=== PATIENT | female | born 1955 | race Caucasian/White ===

== ENCOUNTER 2017-05-10 13:24 | Emergency (ER) | payer MEDICARE, BC ==
[2017-05-10 16:40] LABS: Hematocrit 47 % (35-47); Hemoglobin 16.2 g/dl (12.0-16.0); Mean Corpuscular HGB Conc 35 g/dl (31-36); Mean Corpuscular Hemoglobin 30 pg (27-31); Mean Corpuscular Volume 86 fL (80-97); Mean Platelet Volume 7 um3 (7.4-10.4); Red Blood Count 5.42 10^6/ul (4.0-5.4); Red Cell Distribution Width 13 % (10.5-15); White Blood Count 5.2 10^3/ul (3.5-10.8)
[2017-05-10 17:02] LABS: Albumin 4.6 g/dL (3.2-5.2); BUN/Creatinine Ratio 7.6 (8-20); C Reactive Protein 6.61 mg/L (< 5.00); Calcium 9.8 mg/dL (8.6-10.3); EGFR African American 94.8 (>60); EGFR Non-African American 73.7 (>60); Globulin 3.1 g/dL (2-4); Potassium 3.8 mmol/L (3.5-5.0); Total Bilirubin 0.6 mg/dL (0.2-1.0); Total Protein 7.7 g/dL (6.4-8.9)
[2017-05-10] MEDS: NS 0.9% 1000 ML* 2,000 ML IV ONE (17:13)
[2017-05-10] MEDS ORDERED: Iohexol 300* (CONTRAST) 10 ML SDV IV ONE (17:20)
[2017-05-10 18:03] VITALS: BP 156/93
--- NOTE | 2017-05-10 18:04 | RAD ---
INDICATION: Left lower abdominal pain COMPARISON: March 16, 2011, May 19, 2010 TECHNIQUE: Axial source images were obtained from the hemidiaphragms to the symphysis pubis following administration of oral and intravenous contrast. And 9 mL Omnipaque 300 was utilized. Coronal and sagittal reconstructed images were acquired. Lung bases: There is a rounded 3 mm nodule in left lung base. This is likely an incidental chronic inflammatory focus. This was not clearly present previously but this could be related to technical factors. Suggest nonemergent 6 month follow-up noncontrast imaging the chest.. Liver: There is mild hepatic steatosis. The liver is normal in size. There are no masses. There is no ductal dilatation. Gallbladder: Cholecystectomy. Spleen: The spleen is normal in size. There are no masses. Pancreas: There is no focal pancreatic mass or ductal dilatation. Adrenal glands: There is no evidence of adrenal mass. Kidneys: The kidneys are normal in size and position. There are prompt nephrograms and there is prompt excretion bilaterally. There are no renal parenchymal masses. There is no evidence of nephrolithiasis. Adenopathy: There is no evidence of adenopathy by size criteria. Fluid collections: There are no free or localized fluid collections. Vessels:There are no significant atherosclerotic changes involving the aorta. There is no focal aneurysm. The iliac vessels are normal in caliber. The IVC appears normal. GI tract: The upper GI tract is unremarkable. There is diffuse stool throughout the colon which is mildly distended. There are moderate diverticula of the sigmoid colon. There is minor bowel wall thickening which appears chronic. Consider follow-up endoscopy. Pelvic organs: There is hysterectomy. There is no adnexal mass Bladder: There are no bladder masses. Abdominal and pelvic soft tissues: The extraperitoneal abdominal and pelvic soft tissues appear normal.. Osseous structures: There are no acute osseous findings. There is moderate levoscoliosis with multilevel degenerative disc disease of the lumbar spine. Other: None IMPRESSION: 1. Mild hepatic steatosis. 2. Cholecystectomy. Hysterectomy. 3. Large amount of stool throughout the colon with mild distention. Scattered diverticula. Mild chronic bowel wall thickening. Consider follow-up colonoscopy
[2017-05-10] MEDS ORDERED: Magnesium CITRATE* 300 ML BTL PO ONE (18:54)
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
== END 2017-05-10 19:09 | disposition home or self-care (01) ==
LOC: ED 13:24
DX: K21.9 Gastro-esophageal reflux disease without esophagitis (principal); R10.32 Left lower quadrant pain; K59.00 Constipation, unspecified; R11.2 Nausea with vomiting, unspecified; F17.210 Nicotine dependence, cigarettes, uncomplicated
CPT/HCPCS: 36415; 74177; 80053; 83605; 83690; 85025; 85610; 85730; 86140; 99282; A9270-GY; Q9967

== ENCOUNTER 2018-04-23 17:54 | Inpatient (IN) | payer MEDICARE, BC ==
[2018-04-23] MEDS ORDERED: Morphine VIAL* 10 MG/ML 1 ML VIAL IV ONE (18:12)
[2018-04-23] MEDS ORDERED: Ondansetron INJ* 2 MG/ML VIAL IV ONE (18:12)
[2018-04-23] MEDS ORDERED: NS 0.9% 1000 ML* 1,000 ML IV ONE ×2 (18:12→22:20)
[2018-04-23] MEDS ORDERED: Morphine INJ* 4 MG/ML 1 ML SYRINGE (NEW SYRINGE VERSION) ONE (18:15)
[2018-04-23 18:38] LABS: ABS Basophils 0.1 10^3/ul (0-0.2); ABS Eosinophils 0.1 10^3/ul (0-0.6); ABS Monocytes 0.3 10^3/ul (0-0.8); ABS Neutrophils 2.5 10^3/ul (1.5-7.7); ABS Nucleated RBC 0 10^3/ul; Eosinophil % 1.3 % (0-6); Hematocrit 37 % (35-47); Hemoglobin 12.8 g/dl (12.0-16.0); Lymphocyte % 39.5 % (25-47); Mean Corpuscular HGB Conc 35 g/dl (31-36); Mean Corpuscular Hemoglobin 30 pg (27-31); Mean Corpuscular Volume 86 fL (80-97); Mean Platelet Volume 6.9 um3 (7.4-10.4); Nucleated Red Blood Cells % 0.2; Platelet Count 386 10^3/ul (150-450); Red Blood Count 4.27 10^6/ul (4.00-5.40); Red Cell Distribution Width 14 % (10.5-15)
[2018-04-23 18:55] LABS: EGFR Non-African American 75.7 (>60)
[2018-04-23] MEDS ORDERED: Iohexol 300* (CONTRAST) 10 ML SDV IV ONE (19:11)
--- NOTE | 2018-04-23 20:20 | RAD ---
EXAM: CT Abdomen and Pelvis With Intravenous Contrast CLINICAL HISTORY: 63 years old, female; Pain; Abdominal pain; Localized; Left lower quadrant (llq); Additional info: Llq pain, HX of sbo TECHNIQUE: Axial computed tomography images of the abdomen and pelvis with intravenous contrast. All CT scans at this facility use at least one of these dose optimization techniques: automated exposure control; mA and/or kV adjustment per patient size (includes targeted exams where dose is matched to clinical indication); or iterative reconstruction. Coronal and sagittal reformatted images were created and reviewed. CONTRAST: 100 mL of [id number] administered intravenously. COMPARISON: A/P W CT ABD/PEL W 05/10/2017 5:47 PM FINDINGS: Lung bases: Normal. No mass. No consolidation. ABDOMEN: Liver: Normal. No masses. Portal and hepatic veins are patent. Gallbladder and bile ducts: Surgically absent gallbladder. Pancreas: Normal. No mass. No ductal dilation. Spleen: Normal. No splenomegaly. Adrenals: Normal. No mass. Kidneys and ureters: Indeterminate right renal lesion in the midpole measures 1.1 cm unchanged from prior study (series 4, image 18). The calculi pelvocaliectasis. Stomach and bowel: Incompletely distended grossly normal stomach. Normal caliber small bowel. No colonic masses or segmental wall thickening. PELVIS: Appendix: No dilation or periappendiceal inflammation. Bladder: Thin-walled bladder with no focal nodularity, perivesicular stranding, or calcifications. Reproductive: Uterus and ovaries are surgically absent. ABDOMEN and PELVIS: Intraperitoneal space: Normal. No pneumoperitoneum. No ascities. Bones/joints: The spine demonstrates mild degenerative changes at multiple levels. Levoscoliosis lower lumbar spine. Mild bilateral hip primary osteoarthritis. No fractures. No suspicious bone lesions. Soft tissues: Normal. No hernias. Vasculature: Normal caliber aorta with no evidence of dissection or rupture. Patent IVC. Lymph nodes: Normal. No enlarged lymph nodes. IMPRESSION: 1. No CT findings to correlate with patient's symptomatology. 2. Indeterminate right renal lesion likely a Bosniak type II cyst for which no followup is indicated. To contact [facility] with a general question: [facility] - [phone] For direct physician to physician contact: Physician Hotline - [phone] [facility] ([facility] Facility ID #[id number])
[2018-04-23] MEDS ORDERED: Pantoprazole IV* 40 MG IV ONE (21:12)
[2018-04-23] MEDS ORDERED: Metoclopramide IV* 5 MG/ML 2 ML VIAL IV ONE (22:18)
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
[2018-04-23 22:34] LABS: ABS Basophils 0 10^3/ul (0-0.2); ABS Eosinophils 0 10^3/ul (0-0.6); ABS Lymphocytes 1.2 10^3/ul (1.0-4.8); ABS Monocytes 0.4 10^3/ul (0-0.8); ABS Neutrophils 7.4 10^3/ul (1.5-7.7); ABS Nucleated RBC 0 10^3/ul; Eosinophil % 0.1 % (0-6); Hematocrit 32 % (35-47); Hemoglobin 11.2 g/dl (12.0-16.0); Lymphocyte % 13.1 % (25-47); Mean Corpuscular HGB Conc 35 g/dl (31-36); Mean Corpuscular Hemoglobin 30 pg (27-31); Mean Corpuscular Volume 87 fL (80-97); Mean Platelet Volume 6.7 um3 (7.4-10.4); Nucleated Red Blood Cells % 0; Platelet Count 273 10^3/ul (150-450); Red Blood Count 3.68 10^6/ul (4.00-5.40); Red Cell Distribution Width 14 % (10.5-15)
[2018-04-24] MEDS ORDERED: Metoclopramide IV* 5 MG/ML 2 ML VIAL IV PRN (00:06)
[2018-04-24] MEDS ORDERED: Ondansetron INJ* 2 MG/ML VIAL IV PRN (00:06)
[2018-04-24 00:24] LABS: Hematocrit 31 % (35-47); Hemoglobin 10.8 g/dl (12.0-16.0)
[2018-04-24] MEDS: NS 0.9% 1000 ML* 1,000 ML IV SCH ×2 (00:44→08:27)
[2018-04-24 08:14] LABS: Urine Appearance Clear; Urine Blood 1+ (Negative); Urine Color Yellow; Urine Ketones Negative (Negative); Urine Protein Negative (Negative); Urine Red Blood Cell Trace(0-2/hpf) (Absent); Urine Specific Gravity 1.026 (1.010-1.030); Urine Urobilinogen Negative (Negative); Urine White Blood Cell Trace(0-5/hpf) (Absent)
[2018-04-24] MEDS: Metoprolol Tartrate IV* 1 MG/ML 5 ML VIAL IV SCH ×2 (08:35→20:46)
[2018-04-24] MEDS ORDERED: Pantoprazole IV* 40 MG IV SCH (09:00)
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
[2018-04-24] MEDS: Pantoprazole IV* 40 MG IV SCH ×2 (10:17→20:45)
[2018-04-24 13:21] LABS: Hematocrit 25 % (35-47); Hemoglobin 8.8 g/dl (12.0-16.0); Mean Corpuscular HGB Conc 36 g/dl (31-36); Mean Corpuscular Hemoglobin 31 pg (27-31); Mean Corpuscular Volume 87 fL (80-97); Mean Platelet Volume 6.7 um3 (7.4-10.4); Platelet Count 257 10^3/ul (150-450); Red Blood Count 2.87 10^6/ul (4.00-5.40); Red Cell Distribution Width 14 % (10.5-15); White Blood Count 5.3 10^3/ul (3.5-10.8)
[2018-04-24] MEDS ORDERED: fentaNYL* 50 MCG/ML 2 ML VIAL (100 MCG VIAL) ONE (13:53)
[2018-04-24] MEDS ORDERED: Midazolam* 1 MG/ML 10 ML VIAL (10 MG) ONE (13:53)
--- NOTE | 2018-04-24 18:08 | CONS ---
GASTROENTEROLOGY CONSULT: DATE OF CONSULT: 04/24/18 REASON FOR CONSULT: Concern for upper GI bleed. HISTORY OF PRESENT ILLNESS: Ms. Miranda is a 63-year-old woman with a history of mood disorder, fibromyalgia, IBS with constipation, chronic lower back pain, who presented to the ER with abdominal pain and constipation x2 to 3 days. Ms. Miranda thought that this the pain and constipation was an exacerbation of her underlying IBS with constipation. In the ER, she was noted to have systolic blood pressure in the 80s. She was given 2 to 3 liters of fluid with improvement in her blood pressure. She reportedly then had several episodes of coffee-ground emesis. The patient does not recall seeing the emesis. No note made of bright red blood in the emesis on the admission H and P. Gastroccult was positive. The patient's labs were notable for hematocrit of 37 on arrival with an elevated BUN to 39. She was given IV PPI in addition to the IV fluids. Her labs have demonstrated a down trend in hematocrit over serial checks to 25. Her hemodynamics have remained stable. A CT abdomen and pelvis was negative for any acute GI pathology. GI consulted to consider endoscopy. On interview, Ms. Miranda says that her abdominal pain has much improved. She reports having 3 black stools today. She denies seeing any red blood in the stool, though she comments that she has not really been closely evaluating it. She has not had any further coffee-ground emesis or hematemesis since admission in the ER overnight. She thinks she might have been told that she had an ulcer in the past, although she is not clear any of the details. She denies any NSAIDs use. PAST MEDICAL HISTORY: Medical history includes mood disorder, chronic low back pain, fibromyalgia, hypertension, hyperlipidemia, IBS with constipation. FAMILY HISTORY: No GI or liver disease in family history. SOCIAL HISTORY: Smokes cigarettes. No alcohol use. No drug use. REVIEW OF SYSTEMS: Negative except as above. PHYSICAL EXAM: Vital Signs: Normal temperature, heart rate in the 80s, blood pressure 115/59, pulse ox sat of 99% on room air. General: Well-appearing, comfortable woman, in no acute distress. Making jokes and in a good spirit. HEENT: Mucous membranes are moist. No dried blood in mouth or lips. Cardiovascular: Regular rate and rhythm. No murmurs, rubs, or gallops. Pulmonary: Lungs are clear to auscultation. Abdomen: Soft, nontender, nondistended. Extremities: Warm, well perfused, no edema. Psych: Appears to be normal behavior and normal affect during our interview. DIAGNOSTIC STUDIES/LAB DATA: Labs reviewed and summarized in the HPI. Notable for an initial hematocrit of 37 and BUN elevated to 39. Her hematocrit has drifted down over the course of last 24 hours or so to hematocrit of 25. Stool occult was negative. Gastroccult was apparently positive. CT abdomen and pelvis was performed on 04/23/18. Report reviewed. She was noted to have an indeterminant right renal lesion, but no other acute findings were noted. IMPRESSION AND RECOMMENDATIONS: Ms. Miranda is a 63-year-old woman with a psychiatric history and irritable bowel syndrome with constipation, who presented with abdominal pain and constipation. In the ER, she was noted to be hypotensive, but fluid responsive. She then developed several episodes of coffee -ground emesis and has had several episodes of melena today. Her lab work is notable for an elevated BUN on admission and the hematocrit dropped from 37 to 25 over serial labs. Presentation is concerning for an upper GI bleed. The patient denies any NSAIDs use, although she mentions that she might have been told she had an ulcer in the past. - NPO - Continue IV PPI BID or gtt - Continue to monitor CBC - Plan for EGD this afternoon to evaluate further Procedure note to follow with final recommendations. Thank you very much for this consult. [id number]/[facility] #: [id number] SHIKHA
--- NOTE | 2018-04-24 20:11 | PRO ---
PROCEDURE NOTE: DATE OF PROCEDURE: 04/24/18 PROCEDURE: EGD with biopsy. INDICATION: Concern for upper GI bleed with coffee-ground emesis, melena, and hematocrit drop. MEDICATIONS GIVEN: 1. Fentanyl 100 mcg IV. 2. Midazolam 10 mg IV. DESCRIPTION OF PROCEDURE: Full disclosure of risks was reviewed with the patient as detailed on the consent form. The patient was placed in the left lateral decubitus position and monitored with continuous pulse oximetry, capnography, interval blood pressure monitoring, and direct observation. A bite- block was placed between her teeth. The adult gastroscope was slowly and carefully advanced into the esophagus, into the stomach, and into the distal duodenum. Findings are as below. FINDINGS: E: - Esophagus was a normal tubular structure without any esophagitis, erosions, or ulcers. - There was an incomplete mild patent Schatzki's ring in the distal esophagus. - There was no evidence of Yaneth-Guerra tear. G: - The scope was advanced into the stomach. The stomach was examined in the forward and retroflexed views. - A hiatal hernia was appreciated. There were no Prabhu's erosions or ulcers in the hiatal hernia. - There was yellow liquid fluid in the stomach. No fresh or old blood. - There were areas of linear erythema (antrum>body). Biopsies obtained. - A 1-cm clean-based prepyloric ulcer was noted in the 12 to 2 o'clock position. There was associated edema and narrowing at the pylorus. The adult gastroscope was unable to pass through the pylorus into the duodenum. The adult gastroscope was therefore withdrawn. The XP scope (much thinner diameter) was advanced down into the esophagus and into the stomach and easily passed through the pylorus into the duodenum. D: - The second portion of the duodenum appeared erythematous and edematous without any overt ulceration or erosion. - There was bilious fluid seen on the third portion of the duodenum. No fresh or old blood. The scope was then slowly withdrawn. Patient tolerated the procedure well and was returned to the floor. IMPRESSION: 1. Patent Schatzki's ring. 2. Hiatal hernia. 3. Linear erythema in the gastric antrum and body. 4. A 1-cm clean-based ulcer in the prepyloric antrum/pyloric channel resulting in some edema and narrowing at the pylorus. This is felt to be the source of bleeding. No active bleeding (or evidence of recent bleeding) at time of exam. 4. Adult gastroscope was unable to traverse the pylorus due to edema and narrowing of pylorus. XP gastroscope (much thinner diameter) was able to pass into duodenum and did not note any alternate or additional bleeding source in duodenum. RECOMMENDATIONS: - Await pathology from gastric biopsy - Continue to monitor CBC. - Recommend IV PPI b.i.d. while inpatient. Can switch to oral PPI b.i.d. when the patient is discharged. - Would recommend clear diet for now and slowly advance to a soft diet as hematocrit remains stable over the next 24 hours or so. Notify GI and de- escalate diet if the patient develops nausea, vomiting, or abdominal pain to suggest gastric outlet obstruction. - Please send H pylori stool antigen - Recommend a repeat in 6 weeks to reassess the gastric ulcer. Biopsy unable to be obtained today due to quite difficult location of the ulcer, but it will be important to make sure that the ulcer has healed or at least is significantly on follow-up endoscopy. - Avoid NSAIDs. [id number]/[facility] #: [id number] [facility]
[2018-04-24] MEDS: LORazepam INJ* 2 MG/ML 1 ML VIAL IV PUSH PRN (20:45)
[2018-04-24 22:02] LABS: Hematocrit 23 % (35-47); Hemoglobin 7.8 g/dl (12.0-16.0); Mean Corpuscular HGB Conc 34 g/dl (31-36); Mean Corpuscular Hemoglobin 30 pg (27-31); Mean Corpuscular Volume 86 fL (80-97); Mean Platelet Volume 6.3 um3 (7.4-10.4); Platelet Count 233 10^3/ul (150-450); Red Blood Count 2.65 10^6/ul (4.00-5.40); Red Cell Distribution Width 14 % (10.5-15); White Blood Count 5.4 10^3/ul (3.5-10.8)
[2018-04-24] MEDS: Acetaminophen TAB* 325 MG PO PRN (22:59)
[2018-04-25] MEDS: NS 0.9% 1000 ML* 1,000 ML IV SCH ×2 (00:21→08:25)
[2018-04-25] MEDS: Pantoprazole IV* 40 MG IV SCH ×2 (08:29→20:40)
[2018-04-25 09:13] LABS: ABS Basophils 0.1 10^3/ul (0-0.2); ABS Eosinophils 0.2 10^3/ul (0-0.6); ABS Monocytes 0.3 10^3/ul (0-0.8); ABS Neutrophils 2.1 10^3/ul (1.5-7.7); ABS Nucleated RBC 0 10^3/ul; Eosinophil % 3.4 % (0-6); Hematocrit 24 % (35-47); Hemoglobin 8.3 g/dl (12.0-16.0); Lymphocyte % 43.4 % (25-47); Mean Corpuscular HGB Conc 35 g/dl (31-36); Mean Corpuscular Hemoglobin 30 pg (27-31); Mean Corpuscular Volume 87 fL (80-97); Mean Platelet Volume 6.4 um3 (7.4-10.4); Nucleated Red Blood Cells % 0.1; Platelet Count 235 10^3/ul (150-450); Red Blood Count 2.74 10^6/ul (4.00-5.40); Red Cell Distribution Width 14 % (10.5-15); White Blood Count 4.6 10^3/ul (3.5-10.8)
[2018-04-25 09:32] LABS: EGFR Non-African American 97.2 (>60)
[2018-04-25] MEDS: Verapamil TAB* 120 MG PO SCH ×2 (10:46→20:43)
[2018-04-25] MEDS: Venlafaxine EXT RELEASE CAP* 75 MG PO SCH ×2 (10:46→20:43)
[2018-04-25] MEDS: LORazepam INJ* 2 MG/ML 1 ML VIAL IV PUSH PRN (12:48)
--- NOTE | 2018-04-25 14:56 | PN ---
Subjective Date of Service: 04/25/18 Interval History: Just had another black bowel movement. It was preceded by abdominal discomfort and nausea, all relieved after a bowel movement. Her partner is here visiting. No pain now, feels good just hot. Tolerating clears well, has good appetite and would be interested in advancing diet if allowed. 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, ptsd mood disorder with both depression and anxiety fibromyelgia hyperlipidemia htn ibs htn gonzalo pshx r anxillary lump removed 1979 benign s/p hysterectomy 1992, lbreast nodules resection with all benign path s/ p cholecystectomy 2008 s/p ablation of nerves in the lower back trauma to her left side of head ---> s/p tanya Objective Active Medications: Acetaminophen (Tylenol Tab*) 650 mg PO Q6H PRN PRN Reason: PAIN Last Admin: 04/24/18 22:59 Dose: 650 mg Lorazepam (Ativan Inj*) 0.5 mg IV PUSH Q4H PRN PRN Reason: ANXIETY Last Admin: 04/25/18 12:48 Dose: 0.5 mg Ondansetron HCl (Zofran Inj*) 4 mg IV Q6H PRN PRN Reason: NAUSEA Last Admin: 04/25/18 10:12 Dose: 4 mg Pantoprazole Sodium (Protonix Iv*) 40 mg IV BID [facility] Last Admin: 04/25/18 08:29 Dose: 40 mg Venlafaxine HCl (Effexor Xr Cap*) 75 mg PO BID [facility] Last Admin: 04/25/18 10:46 Dose: 75 mg Verapamil HCl (Calan Tab*) 120 mg PO BID [facility] Last Admin: 04/25/18 10:46 Dose: 120 mg Vital Signs - 8 hr 04/25/18 04/25/18 04/25/18 07:17 11:00 12:48 Temperature 97.9 F 98.6 F Pulse Rate 91 93 Respiratory 18 18 16 Rate Blood Pressure 122/56 141/70 (mmHg) O2 Sat by Pulse 97 97 Oximetry Oxygen Devices in Use Now: None Appearance: pale, no distress, comfortable Eyes: No Scleral Icterus Ears/Nose/Mouth/Throat: NL Teeth, Lips, Gums Neck: NL Appearance and Movements; NL JVP Respiratory: Symmetrical Chest Expansion and Respiratory Effort, Clear to Auscultation Cardiovascular: NL Sounds; No Murmurs; No JVD, RRR Abdominal: NL Sounds; No Tenderness; No Distention Lymphatic: No Cervical Adenopathy Extremities: No Edema Skin: No Rash or Ulcers Neurological: Alert and Oriented x 3 Result Diagrams: 04/25/18 09:03 04/25/18 09:03 Microbiology and Other Data: Microbiology 04/23/18 21:08 Stool Occult Blood (JAVIER) - Final Stool 04/23/18 20:48 Gastric Occult Blood - Final Gastric Fluid Assess/Plan/Problems-Billing Assessment: Ms. Miranda is a 63 year old lady with history of constipation-prone IBS who presentsed with nausea, vomiting, and coffee ground emesis and was found to have a gastric ulcer. - Patient Problems (1) Upper GI bleed Current Visit: Yes Status: Acute Code(s): K92.2 - GASTROINTESTINAL HEMORRHAGE, UNSPECIFIED SNOMED Code(s): 42866790 Comment: EGD yesterday revealed a gastric ulcer; etiology unclear she had been on mobic but hasn't taken it for a few weeks; no etoh no history of liver disease hgb tony appears to be 7.8; continue to trend hemodyamically stable melena today unsurprising, likely old blood from ulcer (2) Acute blood loss anemia Current Visit: Yes Status: Acute Code(s): D62 - ACUTE POSTHEMORRHAGIC ANEMIA SNOMED Code(s): 964353294 Comment: due to #1 no indication for transfusion at this point; keep active type and screen and monitor hgb this afternoon (3) Migraines Current Visit: Yes Status: Acute Code(s): G43.909 - MIGRAINE, UNSP, NOT INTRACTABLE, WITHOUT STATUS MIGRAINOSUS SNOMED Code(s): 28994564 Comment: resume verapamil today (4) Mood disorder Current Visit: Yes Status: Acute Code(s): F39 - UNSPECIFIED MOOD [AFFECTIVE ] DISORDER SNOMED Code(s): 89331416 Comment: resume home meds today
[2018-04-25 16:32] LABS: ABS Basophils 0 10^3/ul (0-0.2); ABS Eosinophils 0.1 10^3/ul (0-0.6); ABS Lymphocytes 1.6 10^3/ul (1.0-4.8); ABS Monocytes 0.3 10^3/ul (0-0.8); ABS Neutrophils 2.1 10^3/ul (1.5-7.7); ABS Nucleated RBC 0 10^3/ul; Eosinophil % 2.8 % (0-6); Hematocrit 21 % (35-47); Hemoglobin 7.2 g/dl (12.0-16.0); Lymphocyte % 37.5 % (25-47); Mean Corpuscular HGB Conc 35 g/dl (31-36); Mean Corpuscular Hemoglobin 30 pg (27-31); Mean Corpuscular Volume 86 fL (80-97); Mean Platelet Volume 6.7 um3 (7.4-10.4); Nucleated Red Blood Cells % 0.2; Platelet Count 196 10^3/ul (150-450); Red Blood Count 2.39 10^6/ul (4.00-5.40); Red Cell Distribution Width 14 % (10.5-15); White Blood Count 4.1 10^3/ul (3.5-10.8)
[2018-04-25] MEDS: Acetaminophen TAB* 325 MG PO PRN (20:45)
[2018-04-26 07:34] LABS: ABS Basophils 0 10^3/ul (0-0.2); ABS Eosinophils 0.1 10^3/ul (0-0.6); ABS Lymphocytes 1.5 10^3/ul (1.0-4.8); ABS Monocytes 0.3 10^3/ul (0-0.8); ABS Neutrophils 1.1 10^3/ul (1.5-7.7); ABS Nucleated RBC 0 10^3/ul; Eosinophil % 4.5 % (0-6); Hematocrit 20 % (35-47); Hemoglobin 7.1 g/dl (12.0-16.0); Lymphocyte % 49.7 % (25-47); Mean Corpuscular HGB Conc 35 g/dl (31-36); Mean Corpuscular Hemoglobin 30 pg (27-31); Mean Corpuscular Volume 86 fL (80-97); Nucleated Red Blood Cells % 0.5; Platelet Count 189 10^3/ul (150-450); Red Blood Count 2.36 10^6/ul (4.00-5.40); Red Cell Distribution Width 14 % (10.5-15)
[2018-04-26 07:43] LABS: EGFR Non-African American 99.1 (>60)
[2018-04-26] MEDS: Venlafaxine EXT RELEASE CAP* 75 MG PO SCH (09:30)
[2018-04-26] MEDS: Verapamil TAB* 120 MG PO SCH (09:30)
[2018-04-26] MEDS: Pantoprazole IV* 40 MG IV SCH (09:40)
[2018-04-26] MEDS: Acetaminophen TAB* 325 MG PO PRN (12:47)
[2018-04-26 12:48] LABS: Hematocrit 22 % (35-47); Hemoglobin 7.7 g/dl (12.0-16.0); Mean Corpuscular HGB Conc 35 g/dl (31-36); Mean Corpuscular Hemoglobin 30 pg (27-31); Mean Corpuscular Volume 87 fL (80-97); Mean Platelet Volume 6.8 um3 (7.4-10.4); Platelet Count 199 10^3/ul (150-450); Red Blood Count 2.55 10^6/ul (4.00-5.40); Red Cell Distribution Width 14 % (10.5-15)
[2018-04-26 12:49] VITALS: BP 124/56
[2018-04-26] MEDS ORDERED: Potassium Chloride LIQUID* 20 MEQ PACKET PO ONE (13:46)
--- NOTE | 2018-04-27 02:04 | DS ---
ADDENDUM NOW INCLUDED ON THIS REPORT CC: Dr. Gupta * DISCHARGE SUMMARY: DATE OF ADMISSION: 04/23/18 DATE OF DISCHARGE: 04/26/18 PRINCIPAL DISCHARGE DIAGNOSES: 1. Gastric ulcer. 2. Acute blood loss anemia. SECONDARY DISCHARGE DIAGNOSES: 1. Chronic pain syndrome. 2. Posttraumatic stress disorder. 3. Mood disorder. 4. Fibromyalgia. 5. Depression and anxiety. 6. Migraines. 7. Constipation-prone irritable bowel syndrome. PHYSICAL EXAM AT THE TIME OF DISCHARGE: Temperature 98.2, heart rate 78, respiratory rate 18, pulse ox 94% on room air, blood pressure 128/64. General: Alert, pale, in no distress. HEENT: Pupils equal, round, and reactive to light with conjunctival pallor. Oral mucosa is moist. Neck: No JVP. No cervical adenopathy. Chest: Regular rate and rhythm. No murmurs. PMI nondisplaced. Lungs are clear bilaterally. Abdomen: Soft, nontender, and nondistended. No guarding or rebound. No CVA tenderness. Extremities: No rashes, ulcers, or ecchymoses. HOSPITAL COURSE BY PROBLEM: 1. Upper gastrointestinal bleed due to gastric ulcer and acute blood loss anemia. Ms. Miranda was admitted with coffee-ground emesis. Her admission hemoglobin was 12.8 and the tony was 7.1. She underwent endoscopy with Dr. Barkley on 04/24/18 and at that time, a 1 cm clean-based prepyloric ulcer was found. She also had associated edema and narrowing at the pylorus. No intervention was taken. No clear risk factor was found with this. Ms. Miranda had been on Mobic, but had not taken it for about a month. Pathology was sent from the biopsy and is pending at the time of discharge. On the morning of her discharge, her hemoglobin is 7.1. I have another hemoglobin pending for several hours later and if it is below 7, I will give her a blood transfusion prior to leaving. Otherwise, she felt quite well today. She was observed for signs of gastric outlet obstruction due to the narrowing of the pylorus; however , she felt well and has been tolerating a full diet and is requesting advancement of her diet this morning. I have explained to her that she needs close GI followup. She declines followup with our time study observer and prefers to follow up with her time study observer at [place] whose name she is unsure of. It is essential that she follows up on the results of the H. pylori test. Of note, a stool H. pylori antigen is also pending and has been sent. She also needs a repeat endoscopy in 6 to 8 weeks. I have explained all of this to her and she understands and will follow up with both her primary and her time study observer. She is being discharged on Protonix 40 mg b.i.d. 2. Migraine headaches. Unfortunately while she was n.p.o., her verapamil had to be held and she did develop a migraine; however, this has been restarted. 3. Depression. She was continued on venlafaxine. DISCHARGE MEDICATIONS: 1. MiraLAX 17 g q.h.s. 2. Zofran 4 mg q.8 p.r.n. nausea. 3. Venlafaxine 75 mg b.i.d. 4. Verapamil 120 p.o. b.i.d. 5. Pantoprazole 40 mg b.i.d. Please do not hesitate to contact me with any questions or concerns about this admission or discharge. ADDENDUM: There was some error in the venlafaxine dosing previously reported on her discharge medications. She is to take venlafaxine 150 mg tablet q.h.s. as well as 75 mg tablet q.h.s. [id number]/[facility] #: [id number] A- [id number]/[facility] #: [id number] [facility]
--- NOTE | 2018-04-27 02:21 | DS ---
DISCHARGE SUMMARY: ADDENDUM: There was some error in the venlafaxine dosing previously reported on her discharge medications. She is to take venlafaxine 150 mg tablet q.h.s. as well as 75 mg tablet q.h.s. [id number]/[facility] #: [id number] MTDD
== END 2018-04-26 16:30 | disposition home or self-care (01) | DRG 378 ==
LOC: ED 17:54 → OBSVTOIN 22:33 → MED 22:33
PROVIDERS: ADMIT Internal Medicine; ATTEND Internal Medicine
PROC: 0DB68ZX Excision of Stomach, Via Natural or Artificial Opening Endoscopic, Diagnostic (ICD-10-PCS; principal; 2018-04-24)
DX: K25.4 Chronic or unspecified gastric ulcer with hemorrhage (principal); D62 Acute posthemorrhagic anemia; K31.1 Adult hypertrophic pyloric stenosis; F43.10 Post-traumatic stress disorder, unspecified; G89.4 Chronic pain syndrome; F41.9 Anxiety disorder, unspecified; F32.9 Major depressive disorder, single episode, unspecified; E78.5 Hyperlipidemia, unspecified; M79.7 Fibromyalgia; K58.1 Irritable bowel syndrome with constipation; F39 Unspecified mood [affective] disorder; I10 Essential (primary) hypertension; G47.33 Obstructive sleep apnea (adult) (pediatric); K22.2 Esophageal obstruction; K44.9 Diaphragmatic hernia without obstruction or gangrene; M54.5 Low back pain; G43.909 Migraine, unspecified, not intractable, without status migrainosus; E86.0 Dehydration; I95.9 Hypotension, unspecified; Z87.440 Personal history of urinary (tract) infections; Z80.7 Family history of other malignant neoplasms of lymphoid, hematopoietic and related tissues; Z80.3 Family history of malignant neoplasm of breast; Z80.1 Family history of malignant neoplasm of trachea, bronchus and lung; Z90.49 Acquired absence of other specified parts of digestive tract; Z90.710 Acquired absence of both cervix and uterus; Z80.0 Family history of malignant neoplasm of digestive organs; Z80.8 Family history of malignant neoplasm of other organs or systems; Z87.891 Personal history of nicotine dependence
CPT/HCPCS: 36415; 74177; 80048; 80053; 81003; 81015; 82270; 82271; 83690; 85014; 85018; 85025; 85027; 86140; 86850; 86900; 86901; 87086; 87338; 88305; 88342; 93005; 99156; 99157; 99285; A9270-GY; J2060; J2250; J2270; J2405; J2765; J3010; J3490; Q9967

== ENCOUNTER 2019-06-11 03:04 | Emergency (ER) | payer MEDICARE, BC ==
--- NOTE | 2019-06-11 03:11 | ED ---
Abdominal Pain/Female - HPI Summary HPI Summary: The patient is a 64 y/o F arriving by ambulance to [facility] with a chief complaint of sudden onset umbilical pain this morning. She reports that she was up to have a BM as she is currently preparing for a colonoscopy this morning, and she developed umbilical pain. The pain was sharp and caused her to become diaphoretic, which is unlike previous abdominal pain episodes she has experienced, so she called for an ambulance. The pain then moved into the epigastric region and eventually completely resolved when EMS arrived. Currently , she is not in any pain. She endorses nausea without vomiting. She notes she drank some milk after the pain began because it often helps her in these episodes. PMHx: diverticulosis, IBS, hysterectomy, cholecystectomy, HLD, HTN, fibromyalgia. Current every day smoker, no EtOH, no substance use. Medications reviewed. Allergies noted. - History of Current Complaint Stated Complaint: ABDOMINAL PAIN PER EMS Hx Obtained From: Patient Onset/Duration: Sudden Onset, Lasting Minutes, Resolved Timing: Minutes Severity Initially: Severe Severity Currently: None Pain Intensity: 0 Pain Scale Used: 0-10 Numeric Location: Epigastric, Umbilical Character: Sharp Aggravating Factor(s): Nothing Alleviating Factor(s): Spontaneous Resolution, Other: - darnk milk because it has helped her pain before in similar episodes Associated Signs and Symptoms: Positive: Diaphoresis, Nausea. Negative: Vomiting Allergies/Adverse Reactions: Allergies Allergy/AdvReac Type Severity Reaction Status Date / Time alprazolam Allergy Unknown Verified 04/23/18 23:24 Reaction Details bupropion Allergy Unknown Verified 04/23/18 23:24 Reaction Details codeine Allergy Unknown Verified 04/23/18 23:24 Reaction Details pregabalin Allergy Palpitation Verified 04/23/18 23:24 s shellfish derived Allergy Anaphylatic Verified 04/23/18 23:24 Shock simvastatin Allergy Rash Verified 04/23/18 23:24 tramadol Allergy Leg Cramps Verified 04/23/18 23:24 PMH/Surg Hx/FS Hx/Imm Hx Endocrine/Hematology History: Denies: Hx Diabetes Cardiovascular History: Reports: Hx Hypercholesterolemia, Hx Hypertension, Other Cardiovascular Problems/Disorders Denies: Hx Pacemaker/ICD GI History: Reports: Hx Diverticulosis - Colonoscopy 2003, Hx Irritable Bowel, Other GI Disorders - Elevated Liver Enzymes Musculoskeletal History: Reports: Hx Fibromyalgia, Hx Scoliosis, Other Musculoskeletal History - Degenerative Disc Disease Comment Only: Hx Back Problems - CHRONIC BACK PAIN Sensory History: Reports: Hx Contacts or Glasses Denies: Hx Hearing Aid Opthamlomology History: Reports: Hx Contacts or Glasses Neurological History: Reports: Other Neuro Impairments/Disorders - LUMBAR STENOSIS Psychiatric History: Reports: Hx Bipolar Disorder Denies: Hx Panic Disorder - Cancer History Cancer Type, Location and Year: Fibrocystic Breast (Left) Papilloma with artypia 10/18 Biopsy - Surgical History Surgical History: Yes Surgery Procedure, Year, and Place: ; Intraductal Papilloma Biopsy 2002- Hyperplasia left breast; Tonsillectomy; Hysterectomy-1992 left ovary intact; Tubal Ligation; Removal. Benign Breast Lumps [id number]; Removal Benign Moles; Lymph Node Removal Axilla Right Arm; Cholecystectomy 01/13/09; Lump removed under right arm -1979; Chemical Burning of Nerves in lower back-2008 Infectious Disease History: Reports: History Other Infectious Disease - Toxoplasmosis - Family History Known Family History: Positive: Other - Cancer - Social History Alcohol Use: None Hx Substance Use: No Substance Use Type: Reports: None Substance Use Comment - Amount & Last Used: fentanyl patch and hydrocodone Hx Tobacco Use: Yes Smoking Status (MU): Current Every Day Smoker Type: Cigarettes Amount Used/How Often: 1/2 PPD Review of Systems Positive: Skin Diaphoresis Positive: Abdominal Pain - umbilical and epigastric, Nausea All Other Systems Reviewed And Are Negative: Yes Physical Exam - Summary Physical Exam Summary: Appearance: Well-appearing, Well-nourished, lying in bed comfortably Skin: Warm, dry, no obvious rash Eyes: sclera anicteric, no conjunctival pallor ENT: mucous membranes moist, pharynx appears normal Neck: Supple, nontender Respiratory: Clear to auscultation, no signs of respiratory distress Cardiovascular: Normal S1, S2. No murmurs. Normal distal pulses in tibial and radial bilaterally. Abdomen: Soft, nontender, normal active bowel sounds present Musculoskeletal: Normal, Strength/ROM Intact Neurological: A&Ox3, awake and alert, mentation is normal, speech is fluent and appropriate Psychiatric: affect is normal, does not appear anxious or depressed Triage Information Reviewed: Yes Vital Signs Reviewed: Yes Procedures - Sedation Patient Received Moderate/Deep Sedation with Procedure: No Diagnostics - Laboratory Result Diagrams: 06/11/19 03:19 06/11/19 03:19 Lab Statement: Any lab studies that have been ordered have been reviewed, and results considered in the medical decision making process. Abdominal Pain Fem Course/Dx - Course Course Of Treatment: Patient is a 64 y/o F with chief complaint of sudden onset umbilical pain that developed into epigastric pain this morning with associated nausea but no vomiting. 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 She is scheduled for a colonoscopy this morning. Physical exam reveals no acute abnormalities. Blood work without significant abnormality except for RBCs of 5.16, MPV of 6.5, potassium of 3.4, creatinine of 1.04, and glucose of 137. UA reveals 2+ protein , 1+ blood, and 2+ leukocyte esterase. We discussed all results and plan for discharge home. She understands and agrees with this plan. Dx of acute abdominal pain. - Diagnoses Provider Diagnoses: Acute abdominal pain Discharge ED - Sign-Out/Discharge Documenting (check all that apply): Patient Departure - Patient will be discharged home. - Discharge Plan Condition: Improved Disposition: HOME Patient Education Materials: Acute Abdominal Pain (ED) Referrals: Raisa Gupta MD [Primary Care Provider] - If Needed - Billing Disposition and Condition Condition: IMPROVED Disposition: Home - Attestation Statements Document Initiated by Arturo: Yes Documenting Scribe: Shania Kate Provider For Whom Arturo is Documenting (Include Credential): Dr. Nitish West MD Scribe Attestation: Shania Carrasquillo scribed for Dr. Nitish West MD on 06/11/19 at 0558. Scribe Documentation Reviewed: Yes Provider Attestation: The documentation as recorded by the Shania avila accurately reflects the service I personally performed and the decisions made by me, Dr. Nitish West MD Status of Scribe Document: Viewed
[2019-06-11 03:26] LABS: ABS Eosinophils 0.1 10^3/ul (0-0.6); ABS Lymphocytes 1.6 10^3/ul (1.0-4.8); ABS Monocytes 0.4 10^3/ul (0-0.8); ABS Neutrophils 3.6 10^3/ul (1.5-7.7); Eosinophil % 2.3 %; Hematocrit 46 % (35-47); Hemoglobin 15.7 g/dL (12.0-16.0); Lymphocyte % 27.6 %; Mean Corpuscular HGB Conc 35 g/dL (31-36); Mean Corpuscular Hemoglobin 30 pg (27-31); Mean Corpuscular Volume 88 fL (80-97); Mean Platelet Volume 6.5 fL (7.4-10.4); Nucleated Red Blood Cells % 0.1; Platelet Count 257 10^3/uL (150-450); Red Blood Count 5.16 10^6 /uL (3.70-4.87); Red Cell Distribution Width 13 % (10-15); White Blood Count 5.8 10^3/uL (3.5-10.8)
[2019-06-11 03:34] LABS: Albumin 4.5 g/dL (3.2-5.2); Calcium 10.2 mg/dL (8.6-10.3); Potassium 3.4 mmol/L (3.5-5.0); Total Bilirubin 0.5 mg/dL (0.2-1.0)
[2019-06-11 03:40] LABS: Albumin/Globulin Ratio 1.6 (1-3); BUN/Creatinine Ratio 7.7 (8-20); C Reactive Protein 5.14 mg/L (<8.01); EGFR African American 64.6 (>60); EGFR Non-African American 53.3 (>60); Globulin 2.9 g/dL (2-4); Total Protein 7.4 g/dL (6.4-8.9)
[2019-06-11 03:40] LABS: Urine Appearance Cloudy; Urine Bilirubin Negative (Negative); Urine Blood 1+ (Negative); Urine Color Yellow; Urine Glucose Negative (Negative); Urine Ketones Negative (Negative); Urine Nitrite Negative (Negative); Urine Protein 2+(100 mg/dL) (Negative); Urine Specific Gravity 1.006 (1.010-1.030); Urine Urobilinogen Negative (Negative)
[2019-06-11 03:43] LABS: Urine Bacteria Absent (Absent); Urine Red Blood Cell 1+(3-5/hpf) (Absent); Urine Squamous Epithelial Cell Present (Absent); Urine White Blood Cell 2+(11-20/hpf) (Absent)
[2019-06-11 03:52] VITALS: BP 110/75
== END 2019-06-11 03:55 | disposition home or self-care (01) ==
LOC: ED 03:04
DX: R10.33 Periumbilical pain (principal); E78.00 Pure hypercholesterolemia, unspecified; I10 Essential (primary) hypertension; F31.9 Bipolar disorder, unspecified; F17.210 Nicotine dependence, cigarettes, uncomplicated; Z90.710 Acquired absence of both cervix and uterus; Z98.51 Tubal ligation status; Z90.49 Acquired absence of other specified parts of digestive tract; Z88.5 Allergy status to narcotic agent; Z88.8 Allergy status to other drugs, medicaments and biological substances
CPT/HCPCS: 36415; 80053; 81003; 81015; 83605; 85025; 86140; 87077; 87086; 99283

== ENCOUNTER 2019-06-13 00:40 | Emergency (ER) | payer MEDICARE, BC ==
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
[2019-06-13] MEDS ORDERED: Ondansetron INJ* 2 MG/ML VIAL IV ONE (01:08)
[2019-06-13] MEDS ORDERED: Morphine 4 MG/ML VIAL (1 ml) 4 MG/ML VIAL IV ONE (01:08)
[2019-06-13 01:10] LABS: ABS Eosinophils 0.1 10^3/ul (0-0.6); ABS Lymphocytes 0.4 10^3/ul (1.0-4.8); ABS Monocytes 0.2 10^3/ul (0-0.8); Eosinophil % 1.2 %; Hematocrit 44 % (35-47); Hemoglobin 15.2 g/dL (12.0-16.0); Lymphocyte % 8.7 %; Mean Corpuscular HGB Conc 35 g/dL (31-36); Mean Corpuscular Hemoglobin 30 pg (27-31); Mean Corpuscular Volume 88 fL (80-97); Mean Platelet Volume 6.4 fL (7.4-10.4); Nucleated Red Blood Cells % 0.2; Platelet Count 229 10^3/uL (150-450); Red Blood Count 5.01 10^6 /uL (3.70-4.87); Red Cell Distribution Width 13 % (10-15); White Blood Count 4.7 10^3/uL (3.5-10.8)
[2019-06-13 01:27] LABS: Albumin 3.8 g/dL (3.2-5.2); Albumin/Globulin Ratio 1.4 (1-3); Calcium 9.4 mg/dL (8.6-10.3); EGFR African American 83.7 (>60); EGFR Non-African American 69.2 (>60); Globulin 2.8 g/dL (2-4); Potassium 3.7 mmol/L (3.5-5.0); Total Bilirubin 0.5 mg/dL (0.2-1.0); Total Protein 6.6 g/dL (6.4-8.9)
[2019-06-13 01:35] VITALS: BP 124/80
[2019-06-13] MEDS ORDERED: Iohexol 300* (CONTRAST) 10 ML SDV IV ONE (02:02)
--- NOTE | 2019-06-13 13:07 | ED ---
Imaging and Labs Follow Up Follow Up Type: Labs/Cultures Labs/Culture Result: Urine culture growing 1-10k GBS and normal carri. Patient Communication/Plan: Minimal growth on culture. No report of urinary sxs on ed note. Will not treat at this time. Provider Diagnoses: Abdominal pain
== END 2019-06-13 03:10 | disposition home or self-care (01) ==
LOC: ED 00:40
DX: R10.9 Unspecified abdominal pain (principal); E78.00 Pure hypercholesterolemia, unspecified; I10 Essential (primary) hypertension; M79.7 Fibromyalgia; F31.9 Bipolar disorder, unspecified; F17.210 Nicotine dependence, cigarettes, uncomplicated; Z90.710 Acquired absence of both cervix and uterus; Z90.49 Acquired absence of other specified parts of digestive tract; Z88.5 Allergy status to narcotic agent; Z88.8 Allergy status to other drugs, medicaments and biological substances
CPT/HCPCS: 36415; 74177; 80053; 85025; 96374; 96375; 99283; J2270; J2405; Q9967

== ENCOUNTER 2021-07-05 11:38 | Inpatient (IN) ==
[2021-07-05] MEDS ORDERED: Dexamethasone IV 4 MG/ML VIAL 1 ml VIAL IV SLOW PU ONE (12:07)
[2021-07-05] MEDS ORDERED: Azithromycin 500 mg/250 ml NS 500 MG/250 ML BAG IVPB ONE (12:07)
[2021-07-05] MEDS ORDERED: cefTRIAXone 1 gm/50 mL NS BAG 1 GM/50 ML BAG IVPB ONE (12:07)
[2021-07-05 12:56] LABS: Hematocrit 41 % (35-47); Hemoglobin 14.4 g/dL (12.0-16.0); Mean Corpuscular HGB Conc 35 g/dL (31-36); Mean Corpuscular Hemoglobin 30 pg (27-31); Mean Corpuscular Volume 85 fL (80-97); Mean Platelet Volume 7.3 fL (7.4-10.4); Platelet Count 286 10^3/uL (150-450); Red Blood Count 4.86 10^6 /uL (3.70-4.87); Red Cell Distribution Width 13 % (10-15); White Blood Count 4.1 10^3/uL (3.5-10.8)
[2021-07-05 12:56] LABS: Venous Bicarbonate HCO3 26.5 mmol/L (24-28)
[2021-07-05 13:11] LABS: INR 1.23 (0.86-1.15)
[2021-07-05 13:12] LABS: Activated Partial Thrombo Time 33.1 seconds (26.0-38.0)
[2021-07-05 13:16] LABS: ALT 56 U/L (7-52); AST 85 U/L (13-39); Albumin 3.7 g/dL (3.2-5.2); Alkaline Phosphatase 111 U/L (35-149); Anion Gap 12 mmol/L (2-11); Blood Urea Nitrogen 9 mg/dL (6-24); C Reactive Protein 251.67 mg/L (<8.01); CO2 Carbon Dioxide 24 mmol/L (22-32); Calcium 9.5 mg/dL (8.6-10.3); Chloride 90 mmol/L (101-111); Globulin 3.6 g/dL (2-4); Glucose 104 mg/dL (70-100); Potassium 3.5 mmol/L (3.5-5.0); Sodium 126 mmol/L (135-145); Total Protein 7.3 g/dL (6.4-8.9); eGFR CKD-EPI 89.2 (>60)
[2021-07-05 13:20] LABS: Troponin I 0.07 ng/mL (<0.03)
[2021-07-05] MEDS ORDERED: Iohexol 350 (CONTRAST) 500 ML MDV IV ONE (13:26)
[2021-07-05 13:28] LABS: ABS Lymphocytes 0.4 10^3/ul (1.0-4.8); ABS Monocytes 0.3 10^3/ul (0-0.8); ABS Neutrophils 3.4 10^3/ul (1.5-7.7); Lymphocyte % 10.1 %; Nucleated Red Blood Cells % 0.1
[2021-07-05 13:44] LABS: LDH 531 U/L (140-271)
[2021-07-05 18:29] LABS: Troponin I 0.06 ng/mL (<0.03)
[2021-07-05] MEDS: Enoxaparin 40 MG/0.4 ML SYR SUBCUT SCH (19:47)
[2021-07-05] MEDS: Acetylcysteine 600mgCAP(RENAL) PO SCH (19:47)
[2021-07-06 04:32] LABS: Urine Appearance Cloudy; Urine Bilirubin Negative (Negative); Urine Blood 2+ (Negative); Urine Color Yellow; Urine Glucose Negative (Negative); Urine Ketones 1+ (Negative); Urine Nitrite Negative (Negative); Urine Protein 1+(30 mg/dL) (Negative); Urine Specific Gravity 1.026 (1.002-1.030); Urine Urobilinogen Negative (Negative)
[2021-07-06 04:38] LABS: Urine Bacteria Absent (Absent); Urine Red Blood Cell Trace(0-2/hpf) (Absent); Urine Squamous Epithelial Cell Present (Absent); Urine White Blood Cell 3+(>20/hpf) (Absent)
[2021-07-06 04:41] LABS: Hematocrit 36 % (35-47); Hemoglobin 12.7 g/dL (12.0-16.0); Mean Corpuscular HGB Conc 35 g/dL (31-36); Mean Corpuscular Hemoglobin 30 pg (27-31); Mean Corpuscular Volume 85 fL (80-97); Mean Platelet Volume 7.1 fL (7.4-10.4); Platelet Count 295 10^3/uL (150-450); Red Blood Count 4.27 10^6 /uL (3.70-4.87); Red Cell Distribution Width 13 % (10-15); White Blood Count 3.5 10^3/uL (3.5-10.8)
[2021-07-06 04:42] LABS: ABS Lymphocytes 0.5 10^3/ul (1.0-4.8); ABS Monocytes 0.4 10^3/ul (0-0.8); ABS Neutrophils 2.5 10^3/ul (1.5-7.7); Lymphocyte % 15.4 %; Nucleated Red Blood Cells % 0.1
[2021-07-06 04:55] LABS: Calcium 9.7 mg/dL (8.6-10.3); Magnesium 2.1 mg/dL (1.9-2.7); Phosphorus 3.4 mg/dL (2.5-5.0); Potassium 3.8 mmol/L (3.5-5.0); eGFR CKD-EPI 96.7 (>60)
[2021-07-06] MEDS: Multivitamins/Minerals TAB PO SCH (08:04)
[2021-07-06] MEDS: Venlafaxine XR 75 mg PO SCH (08:05)
[2021-07-06] MEDS: Acetylcysteine 600mgCAP(RENAL) PO SCH ×2 (08:06→21:50)
[2021-07-06] MEDS: Enoxaparin 40 MG/0.4 ML SYR SUBCUT SCH ×2 (08:06→21:50)
[2021-07-06] MEDS: Dexamethasone IV 4 MG/ML VIAL 1 ml VIAL IV SLOW PU SCH (08:06)
[2021-07-06] MEDS ORDERED: Ondansetron 4 mg VIAL 2 MG/ML 2 ml VIAL IV PRN (08:29)
[2021-07-06] MEDS ORDERED: Perflutren Lipid Microsphere 3 ML VIAL ONE (10:49)
[2021-07-06 12:53] LABS: Urine Appearance Cloudy; Urine Bilirubin Negative (Negative); Urine Blood 1+ (Negative); Urine Color Amber; Urine Glucose Negative (Negative); Urine Ketones Trace (Negative); Urine Nitrite Negative (Negative); Urine Protein 2+(100 mg/dL) (Negative); Urine Specific Gravity 1.024 (1.002-1.030); Urine Urobilinogen Negative (Negative)
[2021-07-06 13:02] LABS: Urine Bacteria Absent (Absent); Urine Granular Casts Present (Absent); Urine Red Blood Cell Trace(0-2/hpf) (Absent); Urine Squamous Epithelial Cell Present (Absent); Urine White Blood Cell 3+(>20/hpf) (Absent)
[2021-07-06] MEDS: cefTRIAXone 1 gm/50 mL NS BAG 1 GM/50 ML BAG IVPB SCH (13:46)
[2021-07-06] MEDS ORDERED: Acetaminophen IV 1 GM/100ML 100 ML IV ONE (18:04)
[2021-07-06] MEDS: Acetaminophen IV 1 GM/100ML 100 ML IV PRN (18:06)
[2021-07-07] MEDS: Acetaminophen IV 1 GM/100ML 100 ML IV PRN (02:57)
[2021-07-07 06:49] LABS: ABS Lymphocytes 0.7 10^3/ul (1.0-4.8); ABS Monocytes 0.6 10^3/ul (0-0.8); ABS Neutrophils 5.5 10^3/ul (1.5-7.7); Hematocrit 35 % (35-47); Hemoglobin 12.1 g/dL (12.0-16.0); Lymphocyte % 10.7 %; Mean Corpuscular HGB Conc 35 g/dL (31-36); Mean Corpuscular Hemoglobin 30 pg (27-31); Mean Corpuscular Volume 85 fL (80-97); Mean Platelet Volume 7.1 fL (7.4-10.4); Platelet Count 339 10^3/uL (150-450); Red Cell Distribution Width 14 % (10-15); White Blood Count 6.8 10^3/uL (3.5-10.8)
[2021-07-07 06:58] LABS: Calcium 9.7 mg/dL (8.6-10.3); Magnesium 2.2 mg/dL (1.9-2.7)
[2021-07-07 07:03] LABS: Phosphorus 3.6 mg/dL (2.5-5.0); eGFR CKD-EPI 95.7 (>60)
[2021-07-07] MEDS: Acetylcysteine 600mgCAP(RENAL) PO SCH ×2 (09:59→20:11)
[2021-07-07] MEDS: Dexamethasone IV 4 MG/ML VIAL 1 ml VIAL IV SLOW PU SCH (10:00)
[2021-07-07] MEDS: Venlafaxine XR 75 mg PO SCH (10:00)
[2021-07-07] MEDS: Multivitamins/Minerals TAB PO SCH (10:00)
[2021-07-07] MEDS: Enoxaparin 40 MG/0.4 ML SYR SUBCUT SCH ×2 (10:00→20:11)
[2021-07-07] MEDS: cefTRIAXone 1 gm/50 mL NS BAG 1 GM/50 ML BAG IVPB SCH (12:30)
[2021-07-07 18:19] LABS: Ferritin 749.7 ng/mL (11-307)
[2021-07-08 04:46] LABS: Hematocrit 34 % (35-47); Hemoglobin 12.3 g/dL (12.0-16.0); Mean Corpuscular HGB Conc 36 g/dL (31-36); Mean Corpuscular Hemoglobin 30 pg (27-31); Mean Corpuscular Volume 84 fL (80-97); Mean Platelet Volume 6.8 fL (7.4-10.4); Platelet Count 336 10^3/uL (150-450); Red Blood Count 4.05 10^6 /uL (3.70-4.87); Red Cell Distribution Width 13 % (10-15); White Blood Count 6.4 10^3/uL (3.5-10.8)
[2021-07-08 04:47] LABS: ABS Lymphocytes 0.9 10^3/ul (1.0-4.8); ABS Monocytes 0.7 10^3/ul (0-0.8); ABS Neutrophils 4.9 10^3/ul (1.5-7.7); Lymphocyte % 13.3 %
[2021-07-08 04:54] LABS: INR 1.04 (0.86-1.15)
[2021-07-08 05:09] LABS: Albumin 2.9 g/dL (3.2-5.2); Calcium 9.6 mg/dL (8.6-10.3); Globulin 2.9 g/dL (2-4); Potassium 4.1 mmol/L (3.5-5.0); Total Bilirubin 0.4 mg/dL (0.2-1.0); Total Protein 5.8 g/dL (6.4-8.9); eGFR CKD-EPI 97.8 (>60)
[2021-07-08] MEDS: Enoxaparin 40 MG/0.4 ML SYR SUBCUT SCH ×2 (09:09→19:45)
[2021-07-08] MEDS: Venlafaxine XR 75 mg PO SCH ×2 (09:10→20:52)
[2021-07-08] MEDS: Dexamethasone IV 4 MG/ML VIAL 1 ml VIAL IV SLOW PU SCH (09:10)
[2021-07-08] MEDS: Acetylcysteine 600mgCAP(RENAL) PO SCH ×2 (09:10→20:53)
[2021-07-08] MEDS: Multivitamins/Minerals TAB PO SCH (09:10)
[2021-07-08] MEDS: cefTRIAXone 1 gm/50 mL NS BAG 1 GM/50 ML BAG IVPB SCH (13:10)
[2021-07-08] MEDS ORDERED: Venlafaxine XR 75 mg PO SCH (21:00)
[2021-07-09 05:19] LABS: Hematocrit 35 % (35-47); Hemoglobin 12.2 g/dL (12.0-16.0); Mean Corpuscular HGB Conc 34 g/dL (31-36); Mean Corpuscular Hemoglobin 29 pg (27-31); Mean Corpuscular Volume 85 fL (80-97); Platelet Count 381 10^3/uL (150-450); Red Blood Count 4.16 10^6 /uL (3.70-4.87); Red Cell Distribution Width 13 % (10-15); White Blood Count 8.1 10^3/uL (3.5-10.8)
[2021-07-09 05:21] LABS: ABS Lymphocytes 0.9 10^3/ul (1.0-4.8); ABS Monocytes 0.6 10^3/ul (0-0.8); ABS Neutrophils 6.5 10^3/ul (1.5-7.7); Eosinophil % 0.2 %; Lymphocyte % 11.4 %
[2021-07-09] MEDS: Acetylcysteine 600mgCAP(RENAL) PO SCH ×2 (09:07→20:10)
[2021-07-09] MEDS: Enoxaparin 40 MG/0.4 ML SYR SUBCUT SCH ×2 (09:07→20:09)
[2021-07-09] MEDS: Dexamethasone IV 4 MG/ML VIAL 1 ml VIAL IV SLOW PU SCH (09:08)
[2021-07-09] MEDS: Multivitamins/Minerals TAB PO SCH (09:08)
[2021-07-09] MEDS: Venlafaxine XR 75 mg PO SCH (20:10)
[2021-07-10 08:52] LABS: Albumin 3.1 g/dL (3.2-5.2); Albumin/Globulin Ratio 1.1 (1-3); Calcium 9.6 mg/dL (8.6-10.3); Globulin 2.8 g/dL (2-4); Potassium 3.9 mmol/L (3.5-5.0); Total Bilirubin 0.5 mg/dL (0.2-1.0); Total Protein 5.9 g/dL (6.4-8.9); eGFR CKD-EPI 97.8 (>60)
[2021-07-10] MEDS: Enoxaparin 40 MG/0.4 ML SYR SUBCUT SCH ×2 (09:33→19:55)
[2021-07-10] MEDS: Multivitamins/Minerals TAB PO SCH (09:35)
[2021-07-10] MEDS: Acetylcysteine 600mgCAP(RENAL) PO SCH ×2 (09:35→19:55)
[2021-07-10] MEDS: Dexamethasone IV 4 MG/ML VIAL 1 ml VIAL IV SLOW PU SCH (09:37)
[2021-07-10] MEDS ORDERED: Polyethylene Glycol 3350 17 GM PACKET PO PRN (16:42)
[2021-07-10] MEDS: Venlafaxine XR 75 mg PO SCH (19:56)
[2021-07-11 07:30] LABS: Albumin 3.1 g/dL (3.2-5.2); Albumin/Globulin Ratio 1.1 (1-3); Direct Bilirubin 0.1 mg/dL (0.03-0.18); Globulin 2.7 g/dL (2-4); Indirect Bilirubin 0.4 mg/dL (0.3-1.0); Total Bilirubin 0.5 mg/dL (0.2-1.0); Total Protein 5.8 g/dL (6.4-8.9)
[2021-07-11] MEDS: Enoxaparin 40 MG/0.4 ML SYR SUBCUT SCH ×2 (09:40→21:23)
[2021-07-11] MEDS: Dexamethasone IV 4 MG/ML VIAL 1 ml VIAL IV SLOW PU SCH (09:42)
[2021-07-11] MEDS: Multivitamins/Minerals TAB PO SCH (09:45)
[2021-07-11] MEDS: Acetylcysteine 600mgCAP(RENAL) PO SCH ×2 (09:45→21:21)
[2021-07-11] MEDS: Venlafaxine XR 75 mg PO SCH (21:22)
[2021-07-12] MEDS: Enoxaparin 40 MG/0.4 ML SYR SUBCUT SCH ×2 (08:47→22:05)
[2021-07-12] MEDS: Acetylcysteine 600mgCAP(RENAL) PO SCH ×2 (08:48→22:03)
[2021-07-12] MEDS: Multivitamins/Minerals TAB PO SCH (08:48)
[2021-07-12 11:59] LABS: Hematocrit 36 % (35-47); Hemoglobin 12.4 g/dL (12.0-16.0); Mean Corpuscular HGB Conc 34 g/dL (31-36); Mean Corpuscular Hemoglobin 30 pg (27-31); Mean Corpuscular Volume 86 fL (80-97); Mean Platelet Volume 6.6 fL (7.4-10.4); Platelet Count 520 10^3/uL (150-450); Red Cell Distribution Width 13 % (10-15); White Blood Count 8.7 10^3/uL (3.5-10.8)
[2021-07-12 12:17] LABS: Albumin 3.2 g/dL (3.2-5.2); Albumin/Globulin Ratio 1.1 (1-3); Calcium 9.5 mg/dL (8.6-10.3); Globulin 2.9 g/dL (2-4); Potassium 3.5 mmol/L (3.5-5.0); Total Bilirubin 0.4 mg/dL (0.2-1.0); Total Protein 6.1 g/dL (6.4-8.9); eGFR CKD-EPI 97.4 (>60)
[2021-07-12 12:25] LABS: ABS Eosinophils 0.1 10^3/ul (0-0.6); ABS Lymphocytes 1.6 10^3/ul (1.0-4.8); ABS Monocytes 0.6 10^3/ul (0-0.8); ABS Neutrophils 6.4 10^3/ul (1.5-7.7); Eosinophil % 1.6 %
[2021-07-12] MEDS: Venlafaxine XR 75 mg PO SCH (22:03)
[2021-07-13] MEDS: Enoxaparin 40 MG/0.4 ML SYR SUBCUT SCH (09:08)
[2021-07-13] MEDS: Multivitamins/Minerals TAB PO SCH (09:10)
[2021-07-13] MEDS: Acetylcysteine 600mgCAP(RENAL) PO SCH (09:10)
[2021-07-13 11:24] VITALS: BP 128/73
[2021-07-13] MEDS ORDERED: Albuterol HFA INHALER 8 gm MDI INH PRN (13:26)
== END 2021-07-13 14:10 | disposition home or self-care (01) | DRG 177 ==
LOC: ED 11:38 → EDHOLD 15:15 → SUATTDRO 15:15 → ICU 16:25 → MED 07-08 17:24
PROVIDERS: ADMIT Internal Medicine; ATTEND Student in an Organized Health Care Education/Training Program